=== PATIENT | female | born 1990 | race Caucasian/White ===

== ENCOUNTER → 2017-07-08 11:26 | Emergency (ER) | payer SELFPAY ==
[~2017-07-08 11:26] MED LIST: PPD test dose* 5 TU/0.1 ML TEST (*USE PPD ORDER SET*) INTRADERM SCH; PPD test dose* 5 TU/0.1 ML TEST (*USE PPD ORDER SET*) ONE
== END | disposition home or self-care (01) ==
LOC: OHCORT 11:26
DX: Z11.1 Encounter for screening for respiratory tuberculosis (principal)

== ENCOUNTER → 2017-07-20 15:18 | Emergency (ER) | payer SELFPAY ==
[~2017-07-20 15:18] MED LIST changes: -PPD test dose* 5 TU/0.1 ML TEST (*USE PPD ORDER SET*) INTRADERM SCH
== END | disposition home or self-care (01) ==
LOC: OHCORT 15:18 → UCCORT 15:18
DX: R76.11 Nonspecific reaction to tuberculin skin test without active tuberculosis (principal)